=== PATIENT | female | born 1985 | race Two or more races ===

== ENCOUNTER 2017-09-08 11:17 | Inpatient (IN) | payer OTHER ==
[~2017-09-08] VITALS: Ht 162.6 cm; Wt 76.2 kg
[2017-09-30] MEDS ORDERED: RHOGAM ULTR1500 UNIT IM (12:53)
== END 2017-10-01 13:51 | DRG 775 ==
LOC: LDR 09-28 20:06 → OB/GYN 09-29 19:41 → LDR 10-01 11:17 → OB/GYN 10-01 13:51
PROC: 4A1HXCZ Monitoring of Products of Conception, Cardiac Rate, External Approach (ICD-10-PCS; 2017-09-28)
PROC: 0HQ9XZZ Repair Perineum Skin, External Approach (ICD-10-PCS; principal; 2017-09-29)
PROC: 10E0XZZ Delivery of Products of Conception, External Approach (ICD-10-PCS; 2017-09-29)
PROC: 0UQMXZZ Repair Vulva, External Approach (ICD-10-PCS; 2017-09-29)
DX: O70.0 First degree perineal laceration during delivery (principal); O71.82 Other specified trauma to perineum and vulva; Z3A.39 39 weeks gestation of pregnancy; Z37.0 Single live birth